=== PATIENT | female | born 1975 | race Two or more races ===

== ENCOUNTER 2024-03-08 10:20 | Emergency (ER) | payer OTHER ==
[~2024-03-08] VITALS: Ht 165.1 cm; Wt 65.9 kg
[2024-03-08 10:36] VITALS: TEMP 98.2
[2024-03-08] MEDS ORDERED: DOCU-412 PO (10:38)
[2024-03-08] MEDS ORDERED: ACET-66 PO (10:38)
[2024-03-08] MEDS ORDERED: OXYC5 PO (10:38)
[2024-03-08 13:43] LABS: INFLUENZA A-RTPCR,COMBO NEGATIVE (NEGATIVE); INFLUENZA B-RTPCR,COMBO NEGATIVE (NEGATIVE); RESPIRATORY SYNCYTIAL VRS-PCR NEGATIVE (NEGATIVE)
[2024-03-08] MEDS: ACETAMINOPHEN 325 MG TABLET PO ONE (14:00)
[2024-03-08 14:12] LABS: SARS COVID19 RTPCR, COMBO POSITIVE (NEGATIVE)
[2024-03-08] MEDS ORDERED: NIRM1TAB10 PO (14:14)
[2024-03-08 14:55] VITALS: BP 110/66; PULSE 97; RESP 18
== END 2024-03-08 14:56 | disposition home or self-care (01) ==
LOC: EMS 10:32
DX: U07.1 COVID-19 (principal); J02.9 Acute pharyngitis, unspecified; R50.9 Fever, unspecified; M79.10 Myalgia, unspecified site
CPT/HCPCS: 99283; 0241U